=== PATIENT | male | born 1985 | race Caucasian/White ===

== ENCOUNTER 2024-10-07 13:10 | Outpatient (RCR) | payer OTHER, SELFPAY | END 2024-11-15 07:34 | disposition home or self-care (01) | LOC: PT 13:10 | PROVIDERS: PCP Family Medicine; Visit Provider Family Medicine | DX: M54.50 Low back pain, unspecified (principal) | CPT/HCPCS: 20561; 97110; 97113; 97140; 97161 ==

== ENCOUNTER 2025-01-05 09:09 | Outpatient (OUT) | payer OTHER, SELFPAY ==
--- NOTE | 2025-01-05 09:14 | MR_ITS ---
[address] [address] Patient Name: JOSELIN KAISER MRN: [id number] date: 1985 Sex: M Assigned Patient Location: MRI Current Patient Location: MRI Accession/Order Number: [id number] Exam Date: 01/05/2025 10:11 Report Date: 01/05/2025 15:49 At the request of: HUMBERTO KNOWLES Procedure: MR lumbar spine wo con EXAM: MR lumbar spine wo con HISTORY: Chronic lumbar back pain with bilateral leg pain. COMPARISON: None. TECHNIQUE: Multiplanar and multisequence imaging of the lumbar spine was performed without contrast FINDINGS: There is straightening of the lumbar lordosis. No acute fracture is evident in the lumbar spine. There is moderate degenerative disc disease at L5-S1 with disc height loss and disc desiccation along with Modic type I edematous degenerative endplate change. There is mild disc height loss and disc desiccation at L2-L3 and L3-L4 as well as disc desiccation at L4-L5. No acute abnormality is identified involving visualized intrapelvic or intra-abdominal structures. The visualized aorta is normal in diameter. No discrete renal lesion is evident. The upper sacrum is intact. There are no pars defects. The conus terminates at the superior aspect of L1. L5-S1: There is moderate degenerative disc disease with a broad-based disc protrusion measuring 5 mm in AP dimension. Mild facet arthropathy is present. There is mild to moderate bilateral foraminal narrowing and effacement of the thecal sac without central stenosis. L4-L5: A broad-based disc protrusion is asymmetric to the right measuring 5 mm in AP dimension with an annular tear on the right. There is moderate to severe lateral recess narrowing on the right and moderate lateral recess narrowing on the left. There is endplate spurring and mild to moderate facet arthropathy resulting in moderate right and mild to moderate left foraminal narrowing. L3-L4: Bilateral foraminal and far lateral disc protrusions are present measuring 6 mm on the left and 5 mm on the right. There is moderate left greater than right foraminal narrowing and moderate to marked lateral recess narrowing bilaterally. The thecal sac measures 10 mm in AP dimension. L2-L3: There is a 4 mm broad-based disc protrusion and mild facet arthropathy. There is no central or foraminal stenosis. L1-L2: There is no focal disc herniation. There is no central or foraminal stenosis. MR/MR lumbar spine wo con IMPRESSION: 1. Bilateral foraminal and far lateral disc protrusions at L3-L4 result in moderate left greater than right foraminal narrowing. 2. There is a broad-based disc protrusion at L4-L5 asymmetric to the right resulting in moderate to severe lateral recess narrowing on the right and moderate lateral recess narrowing on the left along with moderate right and mild to moderate left foraminal narrowing at L4-L5. 3. There is also broad-based disc protrusion at L5-S1 resulting in mild to moderate bilateral foraminal narrowing without central stenosis. Electronically authenticated by: CANDICE MAJOR Date: 01/05/2025 15:49
--- NOTE | 2025-01-05 09:49 | XR_ITS ---
The [address] [address] Patient Name: JOSELIN KAISER MRN: [id number] date: 1985 Sex: M Assigned Patient Location: MRI Current Patient Location: MRI Accession/Order Number: [id number] Exam Date: 01/05/2025 09:50 Report Date: 01/05/2025 11:24 At the request of: HUMBERTO KNOWLES Procedure: XR foreign body eye IVAN EXAM: XR foreign body eye IVAN HISTORY: Foreign Body Eye COMPARISON: None. TECHNIQUE: 2 views of the orbits. FINDINGS: No radiopaque foreign body in the region of the orbits is identified. The paranasal sinuses appear clear. No aneurysm clip is seen. XR/XR foreign body eye IVAN IMPRESSION: No radiopaque foreign body in the region of the orbits. Electronically authenticated by: MYRNA MATHIS Date: 01/05/2025 11:24
== END 2025-01-05 09:10 | disposition home or self-care (01) ==
LOC: MRI 09:10
PROVIDERS: PCP Family Medicine; Visit Provider Family Medicine
DX: M54.50 Low back pain, unspecified (principal); M51.26 Other intervertebral disc displacement, lumbar region
CPT/HCPCS: 70030; 72148

== ENCOUNTER 2025-03-18 07:54 | Outpatient (OUT) | payer OTHER, SELFPAY ==
--- NOTE | 2025-03-18 07:58 | MR_ITS ---
The [address] [address] Patient Name: JOSELIN KAISER MRN: [id number] date: 1985 Sex: M Assigned Patient Location: MRI Current Patient Location: MRI Accession/Order Number: [id number] Exam Date: 03/18/2025 23:37 Report Date: 03/18/2025 23:43 At the request of: DANIELA IRAHETA MD Procedure: MR head/brain wo/w con MRI BRAIN WITHOUT AND WITH INTRAVENOUS CONTRAST CLINICAL DATA: Left-sided tinnitus COMPARISON: None FINDINGS: No restricted diffusion. Ventricles and sulci normal size and configuration for the patient's age. No shift midline structure. Basal cisterns are patent. Brain parenchyma unremarkable in signal intensity. Intracranial arterial vascular flow voids are preserved. Dedicated imaging of the IACs demonstrate maintenance of the intrinsic T2 signal within the inner ear structures. Unremarkable course and caliber of the cisternal segments of the 7th and 8th cranial nerves. Incidental right-sided AICA extending to the right IAC. No abnormal retrocochlear. No abnormal enhancement elsewhere within the brain. Mild ethmoid sinus and maxillary sinus mucoperiosteal thickening. Mastoids are clear MR/MR head/brain wo/w con IMPRESSION: Essentially unremarkable MRI of the brain and IACs. No retrocochlear enhancement identified. Impression dictated by: Jozef Chow M.D. 03/18/2025 11:43 PM Dictation Location: [place] [address] Electronically authenticated by: [id number] Y Date: 03/18/2025 23:43
== END 2025-03-18 07:55 | disposition home or self-care (01) ==
LOC: MRI 07:54
PROVIDERS: PCP Family Medicine; Visit Provider Otolaryngology
DX: H93.12 Tinnitus, left ear (principal); H90.42 Sensorineural hearing loss, unilateral, left ear, with unrestricted hearing on the contralateral side
CPT/HCPCS: 70553; A9575

== ENCOUNTER 2025-11-04 15:54 | Outpatient (OUT) | payer OTHER, SELFPAY ==
--- OUTSIDE RECORDS SUMMARY | 2025-10-28 06:28 | XMS_ITS | Continuity of Care Document ---
Author Organization [facility] Address [address] [place] [address] Phone Care Team Providers Care Pocket Maker Name Role Phone Trisha Sweet MD Primary Care Provider Stanford Villalpando DO Attending Provider [phone] Trisha Sweet MD Attending Provider Care Teams Patient Care Team Team Status: Active Member Role/Relationship Status Dates Trisha Sweet MD Primary Care Provider Active Visit Care Team Team Status: Inactive Member Role/Relationship Status Dates Trisha Sweet MD Primary Care Provider Active Start: August 19, 2025 End: August 19, 2025Stanford Villalpando DOAttnathan ProviderActiveStart: August 19, 2025 End: August 19, 2025 Visit Care Team Team Status: Inactive Member Role/Relationship Status Dates Trisha Sweet MD Primary Care Provider Active Start: September 23, 2025 End: September 23, 2025Maura Torrez ProviderActiveStart: September 23, 2025 End: September 23, 2025 Patient Care Team Team Status: Inactive Member Role/Relationship Status Dates Trisha Sweet MD Primary Care Provider Active Start: October 28, 2025 End: October 28, 2025Maura Torrez ProviderActiveStart: October 28, 2025 End: October 28, 2025 Chief Complaint and Reason for Visit Chief Complaint Admit Date b/l hip pain August 19, 2025 10 :49am Wellness September 23, 2025 8 :55am Foot Pain/Wants Referral October 28, 2025 10:40am Reason for Visit Admit Date Piriformis syndrome of both sides Octobe 2024 10:49am Myalgia, pelvic region and thigh August 19, 2025 10:49am Adult ADHD September 23, 2025 8 :55am EDGAR (obstructive sleep apnea) September 232024 8:55am Wellness examination September 23, 2025 8:55am Piriformis syndrome of both sides Novemb er 2024 8:55am Right foot pain October 28, 2025 10:40am Reason for Referral Type Reason(s) Provider Provider Contact Information Ela last Address Start Date Right foot pain M79.671 - Pain in right footM79.671 - [facility] Allergies, Adverse Reactions, Alerts Allergen Type Severity Reaction Last Updated Verified Status coedine Allergy Moderate Itching February 10, 2025 8:36am No Active Social History Smoking Status Unknown if ever smoked Observation Status Observation Response Date of Response Legal Sex Male (finding) Sex Assigned At [facility] 1985 Family History Relationship Condition Age at Onset Recorded Date/T mimi father High blood cholesterol Unknown Problems Active Problems Problem Diagnosis/Recorded Date Onset Date Stat EDGAR (obstructive sleep apnea) September 23, 2025 9:30a m Unknown Active Adult ADHD January 07, 2024 11:34am Unknown Active Sinusitis, acute maxillary March 08, 2024 12:37pm Un known Active Wellness examination September 23, 2025 9:30am Unknown Active Lumbar pain September 22, 2024 4:54pm Unknown Ac tive Right foot pain October 28, 2025 11:04am Unknown Active Left-sided sensorineural hearing loss September 15 1:53pm Unknown Active Piriformis syndrome of both sides February 10, 2025 11: 46am Unknown Active Medications Medication Status Dose Units Route Directions Qty Days Refills S tart Date Stop Date End Date Reason(s) Instructions Adherence Dextroamphetamine-Amphetamin e (Adderall Xr) 15 mg capsule,extended release 24hr Discontinued 15 MG PO Every morning 30 30 0 February 06, 2024 March 06, 2024 8:10amAttention deficit disorder of adult with hyperactivity Attention-deficit hyperactivity disorder, unspecified typeDextroamphetamine- Amphetamine (Adderall Xr) 15 mg capsule,extended release 66ogZwuudlgjnwat54DNJW Every igpxvjy34197Jko 2023June 2023 1:40pmAttention deficit disorder of adult with hyperactivity Attention-deficit hyperactivity disorder, unspecified typeDextroamphetamine- Amphetamine (Adderall Xr) 15 mg capsule,extended release 99ogFuetgiaprjpd52EVUD Every ihiyahs28845Iylo 2023July 2023 7:46amAttention deficit disorder of adult with hyperactivity Attention-deficit hyperactivity disorder, unspecified typeDextroamphetamine- Amphetamine (Adderall Xr) 15 mg capsule,extended release 01ekEycrsnhmpvsa09LVMP Every yvogdxa85724Edar ugust 2023 9:06amAttention deficit disorder of adult with hyperactivity Attention-deficit hyperactivity disorder, unspecified typeDextroamphetamine- Amphetamine (Adderall Xr) 15 mg capsule,extended release 14cgJoxfmcxcoqzo91FGVX Every ygyfrzc66336Ogkuys 2023September 2023 12:28pmAttention deficit disorder of adult with hyperactivity Attention-deficit hyperactivity disorder, unspecified typeDextroamphetamine- Amphetamine (Adderall Xr) 15 mg capsule,extended release 25btWnzhwjbtaiqo64MAEB Every ltjaxyu01031Bpgnwlmqe 2023October 2023 2:33pmAttention deficit disorder of adult with hyperactivity Attention-deficit hyperactivity disorder, unspecified typeDextroamphetamine- Amphetamine (Adderall Xr) 15 mg capsule,extended release 17jeLvpytimvuxzj37CMKW Every tapmzjf17967Qkiesch 2023November 2023 11:25amAttention deficit disorder of adult with hyperactivity Attention-deficit hyperactivity disorder, unspecified typeDextroamphetamine- Amphetamine (Adderall Xr) 15 mg capsule,extended release 29bkKhavswmotbec31HXCO Every dshopxt60073Enysbppi ecember 2023 1:13pmAttention deficit disorder of adult with hyperactivity Attention-deficit hyperactivity disorder, unspecified typeDextroamphetamine- Amphetamine (Adderall Xr) 15 mg capsule,extended release 83vnUktsiwollxse39UKUF Every zrqzsbr93959Livwdaap 2023January 2024 8:38amAttention deficit disorder of adult with hyperactivity Attention-deficit hyperactivity disorder, unspecified typeDextroamphetamine- Amphetamine (Adderall Xr) 15 mg capsule,extended release 58ayMokjnricrbws53NOUT Every rpwoedy02084Xcbmbru 2024February 2024 9:21amAttention deficit disorder of adult with hyperactivity Attention-deficit hyperactivity disorder, unspecified typeDextroamphetamine- Amphetamine (Adderall Xr) 15 mg capsule,extended release 71xrRalxfcagkyqu17XJMP Every udaksuk81705Ttgfolju 2024March 2024 7:13amAttention deficit disorder of adult with hyperactivity Attention-deficit hyperactivity disorder, unspecified typeDextroamphetamine- Amphetamine (Adderall Xr) 15 mg capsule,extended release 10pfUdeledklefet82JJTF Every nljwvzh93579Ccnmq pril 2024 8:32amAttention deficit disorder of adult with hyperactivity Attention-deficit hyperactivity disorder, unspecified typeDextroamphetamine- Amphetamine (Adderall Xr) 15 mg capsule,extended release 25pdQuxfcimygmvb68WYKE Every kgvchrj30562Mnmfr 2024May 2024 12:19pmAttention deficit disorder of adult with hyperactivity Attention-deficit hyperactivity disorder, unspecified typeDextroamphetamine- Amphetamine (Adderall Xr) 15 mg capsule,extended release 96bmRuaxnotazrbz82XDYT Every ecydodc80660Qew 2024June 2024 11:45amAttention deficit disorder of adult with hyperactivity Attention-deficit hyperactivity disorder, unspecified typeDextroamphetamine- Amphetamine (Adderall Xr) 15 mg capsule,extended release 32frCyfwpjpguykd14IFAJ Every gezetkg72578Szlg 2024July 2024 8:49amAttention deficit disorder of adult with hyperactivity Attention-deficit hyperactivity disorder, unspecified typeDextroamphetamine- Amphetamine (Adderall Xr) 15 mg capsule,extended release 47mtWgoxvucolake44UARL Every vqbeajx41541Rabl ugust 2024 10:11amAttention deficit disorder of adult with hyperactivity Attention-deficit hyperactivity disorder, unspecified typeDextroamphetamine- Amphetamine (Adderall Xr) 15 mg capsule,extended release 23syOunqbajmmduv63JCVQ Every gdmjvyp36027Dhifhx ugu2024 10:12amAttention deficit disorder of adult with hyperactivity Attention-deficit hyperactivity disorder, unspecified typeDextroamphetamine- Amphetamine (Adderall Xr) 15 mg capsule,extended release 32duHftufbslwykn20NHFD Every qrcjoqm12230Lrssgr 2024September 2024 7:20amAttention deficit disorder of adult with hyperactivity Attention-deficit hyperactivity disorder, unspecified typeDextroamphetamine- Amphetamine (Adderall Xr) 15 mg capsule,extended release 67pdBzrhxqwsvjvt21LFVA Every czrhrzc30236Tpizewklw 2024September 2024 7:21amAttention deficit disorder of adult with hyperactivity Attention-deficit hyperactivity disorder, unspecified typeDextroamphetamine- Amphetamine (Adderall Xr) 15 mg capsule,extended release 76cxZgfmnyudelra46NGWX Every dvgxatj27982Zarokmzic 2024October 2024 7:24amAttention deficit disorder of adult with hyperactivity Attention-deficit hyperactivity disorder, unspecified typeDextroamphetamine- Amphetamine (Adderall Xr) 15 mg capsule,extended release 48qaWesmedxvkolg75ZHSZ Every tikhkzh73402Eamfcol 2024Nov2024 8:30amAttention deficit disorder of adult with hyperactivity Attention-deficit hyperactivity disorder, unspecified typeDextroamphetamine- Amphetamine (Adderall Xr) 15 mg capsule,extended release 88joVkbfxf70CCKUFmajz phzcicj34871Ctgvhcmy 21st, 2025Attention deficit disorder of adult with hyperactivity Attention-deficit hyperactivity disorder, unspecified typeComplies with drug therapyDextroamphetamine-Amphetamine (Adderall Xr) 10 mg capsule,extended release 40mkQctdprxysglv3JPXGHAbknk0Owsicnaq 2023 12:00amFebruary 2023 11:34amFreeTextSi capsule in the morning Orally Once a day; Note: Source Status: Refill; Refills: 0; Qty: 30 Capsule; Provider: Kee Darnell Dextroamphetamine-Amphetamine (Adderall Xr) 10 mg capsule,extended release 24hr Zgnjsmfxdyfr0OWSZCGqrur51935Kaznqktf 2023March 2023 11:53amAttention deficit disorder of adult with hyperactivity Attention-deficit hyperactivity disorder, unspecified typeFreeTextSi capsule in the morning Orally Once a day; Note: Source Status: Refill; Refills: 0; Qty: 30 Capsule; Provider: Kee Alvarezthromycin 250 mg lngcbqWxwgxxtmkxpp9JJ .KRLTDTT84Yrpil 2023 11:00pmOctober 2023 1:27pmFor 250 mg dose pack: take 500 mg today (day 1), then 250 mg for 4 days (days 2-5) PO Dextroamphetamine-Amphetamine (Adderall Xr) 15 mg capsule,extended release 24hr Exgwcxfrvlck65NGZCTrslj madbyjd84070Epxvz 2023May 2023 8:54am Attention deficit disorder of adult with hyperactivity Attention-deficit hyperactivity disorder, unspecified typeAmoxicillin-Pot Clavulanate 875-125 mg breuezOrxcwifdyhbt7UJNRHKisgi mjicc402Uqwkuaw 27th, 2024 11:00pmMarch 2024 8:38am Vital Signs Vital Reading Result Reference Range Collection Date/Time Height 74 [in_i] August 19, 2025 8:33znIyvjlm06.53 kgOct2024 8:37amBody Temperature 97.3 [degF]97.6-99.0Oct2024 8:37amHeart Rate75 /yjy93-993UgnkfmfAugust 19, 2025 8:37amOxygen saturation by Pulse lgaotueu39 %95-100August 19, 2025 8:37am BP Yiuhuqwo244 mm[Hg]100-140August 19, 2025 8:37amBP Kwqgsaolb88 mm[Hg]60-100 August 19, 2025 8:37amBMI (Body Mass Index)26.2 kg/n1HjvbikcAugust 19, 2025 8:37am Zzbecs73 [in_i]September 23, 2025 8:85ikFgctdo44.07 kgNov2024 8:57am Heart Rate90 /mkx43-728YrixsykbSeptember 23, 2025 8:57amBP Utgiwlww911 mm[Hg]100-140 September 23, 2025 8:57amBP Ltnornxqi61 mm[Hg]60-100September 23, 2025 8:57amBMI (Body Mass Index)26.0 kg/z8VlydhbaxSeptember 23, 2025 8:32wkDpxyzb69 [in_i]October 28, 2025 10:57rbFiusnz71.33 kgDecember 2024 10:41amHeart Ornl484 /min 60-100Decemb2024 10:41amBP Ugqzcqxv444 mm[Hg]100-140December 2024 10:41amBP Nntmbsyhn34 mm[Hg]60-100December 2024 10:41amBMI (Body Mass Index)28.0 kg/e5Bfnllbzh2024 10:41am Advance Directives Advance Directive Response Recorded Date/ Time Advance Directives No March 06 7:34am Insurance Providers Guarantor Ozzy Glaser Miguel Address [address] [place] [id number] Info.Home Phone: Payer Group Member ID Coverage Type Subscriber Relationship to Subscriber Effective Date Expiration Date [facility] [id number] N Smith Id: [id number] [address] [place] [id number] Home Phone: Email: [email or web address] Encounters Encounter Location(s) Arrival/Admit Date Discharge/Departure Date Discharge/Departure Disposition Provider(s) Departed Physician/ Provider Office Visit -[facility] [place] August 19, 2025 10:49am August 19, 2025 11:34am Discharged to home care or self care (routine discharge) Stanford Villalpando DO Departed Physician/ Provider Office Visit -[facility] September 23, 2025 8:55am September 23, 2025 9:33am Discharged to home care or self care (routine discharge) Trisha Sweet MD Departed Physician/ Provider Office Visit -[facility] October 28, 2025 10:40am October 28, 2025 11:27am Discharged to home care or self care (routine discharge) Trisha Sweet MD Recent Diagnosis Onset Date Admit Date Piriformis syndrome of both sides Unknown August 19, 2025 10:49am Myalgia, pelvic region and thigh Unknown August 19, 2025 10:49am Adult ADHD Unknown September 23 8:55am EDGAR (obstructive sleep apnea) Unknown No vember 2024 8:55am Wellness examination Unknown September 8:55am Piriformis syndrome of both sides Unknown September 23, 2025 8:55am Right foot pain Unknown October 28, 2 025 10:40am Assessments Diagnosis Onset Date Resolution Status Admit Date Piriformis syndrome of both sides chronicOctober 2024 10:49amMyalgia, pelvic region and thighnoneactive August 19, 2025 10:49amAdult ADHDacuteNov2024 8:55amOSA (obstructive sleep apnea)acuteSeptember 23, 2025 8:55amWellness examinationacute September 23, 2025 8:55amPiriformis syndrome of both sideschronicSeptember 23, 2025 8:55amRight foot painacuteDecember 2024 10:40am Plan of Treatment Author Stanford Villalpando [facility] 20[facility] 11:33amPatient has a reoccurrence of piriformis syndrome bilaterally. He received injections back in February that provided 5 to 6 months worth of benefit. Pain is not as severe as it was but he is noticing some sciatica symptoms again and would like treatment so it does not get severe again. We discussed repeat steroid injections given how long the previous ones benefited him. He agreed and they were performed under ultrasound guidance in the office today. Patient is not to do any strenuous exercising for the next 2 to 3 days and then resume rehab exercising for the piriformis to try and keep these from happening again. He will follow-up in the future as needed. Author Trisha Sweet [facility]Nov[facility] 2024 9:31amPt states the medication is working well, getting him through work day, multi tasking, etc. He understands it is a controlled substance and keeps medication safe. CS contract signed earlier this year. He is not interested in changing it to a non stimulant option at this time. OARRS reviewed. Personalized health advice was given to the beneficiary to health education of preventative counseling services or programs aimed at reducing identified risk factors and improving self-management or community-based lifestyle interventions to reduce health risks and promote self-management and wellness, including physical activity and nutrition. continue w use of CPAP Continue followup w Dr. Villalpando. Future Tests Future scheduled test information is unavailable Pending Tests Test Name Ordered Date Scheduled Date XR foot RT min 3V* October 28, 2025 11:04am Future Visits Future appointment information is unavailable Future Procedures Future procedure information is unavailable Future Medications Future medication information is unavailable Patient Instructions Patient instructions are unavailable Hospital Discharge Instructions Ambulatory Orders* Referral to Podiatry Time Frame: 10/28/25, Location: None Selected
--- NOTE | 2025-11-04 | XR_ITS ---
The [place] [id number] Patient Name: JOSELIN KAISER MRN: [id number] date: 1985 Sex: M Assigned Patient Location: [facility] Current Patient Location: [facility] Accession/Order Number: [id number] Exam Date: 11/04/2025 16:05 Report Date: 11/04/2025 16:23 At the request of: HUMBERTO KNOWLES MD Procedure: XR foot RT min 3V 3 views right foot HISTORY: Right foot pain for couple weeks Adequate bony alignment without acute displaced fracture or significant degeneration or soft tissue abnormality. XR/XR foot RT min 3V IMPRESSION: Unremarkable exam. Impression dictated by: Alberto Rutherford M.D. 11/04/2025 4:23 PM Dictation Location: [place] [address] Electronically authenticated by: [id number] Y Date: 11/04/2025 16:23
--- OUTSIDE RECORDS SUMMARY | 2025-11-04 15:58 | XMS_ITS | Encounter Summary ---
Author Organization [facility] Address [address] [place] [address] Care Team Providers Care Lobby Porter Name Role Phone Trisha Sweet MD Primary Care Provider [phone] Encounter Details DateTypeDepartmentCare Team (Latest Contact Info)Rifwcpozgrb59/12/2025bstract [facility] [address] [facility] [address] [place] [phone] Darrian Cole DPM [address] [address] Social History Tobacco UseTypesPacks/DayYears UsedDateSmoking Tobacco: NeverSmokeless Tobacco: NeverAlcohol UseStandard Drinks/WeekCommentsNever0 (1 standard drink = 0.6 oz pure alcohol)caffeine intake: 2-3 cups per daySex and Gender InformationValue Date RecordedSex Assigned at BirthNot on fileLegal RsuIpvm6601/31/2023 7:20 PM EDT Gender IdentityNot on fileSexual OrientationNot on filedocumented as of this encounter Plan of Treatment DateTypeDepartmentCare Team (Latest Contact Info)Kbammqcrudb95/22/2025 9:00 AM ESTOffice Visit [facility] [address] [place] [phone] Darrian Cole DPM [address] [address] documented as of this encounter Visit Diagnoses Not on filedocumented in this encounter Care Teams Team MemberRelationshipSpecialtyStart DateEnd Date Trisha Sweet MD [address] [place] [phone] PCP - GeneralFamily Medicine03/10/25documented as of this encounter
--- OUTSIDE RECORDS SUMMARY | 2025-11-04 15:58 | XMS_ITS | Clinical Summary ---
Author Organization [facility] Address [address] [place] [address] Care Team Providers Care Financial Accounting Manager Name Role Phone Trisha Sweet MD Primary Care Provider [phone] Allergies Active AllergyReactionsCriticalityNoted IdbwWgstqrewZzerqmn38/05/2024 Other Reaction(s): severe itching Medications MedicationSigDispense QuantityRefillsLast FilledStart DateEnd DateStatus amphetamine-dextroamphetamine XR (Adderall XR) 10 MG 24 hr capsule Take 10 mg by mouth in the morning.01/07/2024ctive Active Problems ProblemNoted DateDiagnosed DateAbdominal pain03/10/2025dult ADHD03/10/2025 Encounter for examination for recruitment to [facility]03/10/2025Encounter for tbpnijkvk75/22/2025Left-sided sensorineural hearing loss03/10/2025Piriformis syndrome of both sides03/10/2025Screening examination for pulmonary tuberculosis 03/10/2025Tinea ernfue9503/10/2025hronic maxillary wyvpqzvzn40/05/2024hronic famhhgfiyymk43/05/2024egenerative disc disease, lmrgmt4201/22/2024eviated nasal koeelz0801/22/2024Lumbago with sciatica, left side01/22/2024Sciatica, left side 01/22/2024Hypertrophy of nasal rbzrowhymh96/05/2024Nasal ggopvrdkqfj86/05/2024 Obstructive sleep apnea himfnksg70/05/2024Other chronic pain01/22/2024Sinusitis 01/22/2024 Encounters DateTypeDepartmentCare PbzrUabchfpnfdz29/12/2025bstract [facility] [address] [facility] [address] [place] [address] Darrian Cole DPM 09/25/2025 9:30 AM ESTClinical Support [facility] [address] [place] [address] Charlotte Newby CCC-Ina Sensorineural hearing loss, unilateral, left ear, with unrestricted hearing on the contralateral side (Primary Dx); Tinnitus, mzambgbla08/07/2025amboo flowsheet [facility] [address] [place] [address] Charlotte Newby CCC-A 09/25/2025Travelfrom Last 3 Months Immunizations ImmunizationAdministration DatesNext GrwECD4403/22/1994,06/10/1985,03/11/1984, 02/19/1984Influenza, Khgjqteujim48/19/2023Influenza, injectable, quadrivalent 10/13/2019MMR07/06/1999,03/13/1985OPV03/22/1994,06/10/1985,02/19/1984 Family History Medical HistoryRelationNameCommentsDiabetesFatherHeart diseaseFatherAsthmaOther Family historyCancerOtherFamily historyCoronary artery diseaseOtherFamily historyHypertensionOtherFamily historyRelationNameStatusCommentsFatherAlive MotherAliveOtherFamily history Social History Tobacco UseTypesPacks/DayYears UsedDateSmoking Tobacco: NeverSmokeless Tobacco: NeverAlcohol UseStandard Drinks/WeekCommentsNever0 (1 standard drink = 0.6 oz pure alcohol)caffeine intake: 2-3 cups per daySex and Gender InformationValue Date RecordedSex Assigned at BirthNot on fileLegal NpaAnsl4201/31/2023 7:20 PM EDT Gender IdentityNot on fileSexual OrientationNot on file Last Filed Vital Signs Vital SignReadingTime TakenCommentsBlood Aaqxnawk544/8403/30/2025 9:15 AM EDT Ggifz267003/30/2025 9:15 AM EDTTemperature--Respiratory Rate--Oxygen Saturation-- Inhaled Oxygen Concentration--Eyprvg603 kg (238 lb)03/30/2025 9:15 AM EDTHeight 188 cm (6' 2 )03/30/2025 9:15 AM EDTBody Mass Index30.56003/30/2025 9:15 AM EDT Plan of Treatment DateTypeDepartmentCare Team (Latest Contact Info)Ylahhtxbzet74/22/2025 9:00 AM ESTOffice Visit [facility] [address] [place] [id number] Darrian Cole DPM [address] [address] Procedures Procedure NamePriorityDate/TimeAssociated DiagnosisCommentsAUDITORY FUNCTION MMTROCkuizhm09/07/2025 10:11 AM EST from Last 3 Months Results * Auditory function tests (09/25/2025 10:11 AM EST) Narrative Charlotte Newby CCC-A - 09/25/2025 10:11 AM EST Right Ear: Normal hearing Left Ear: ?? Moderate sensorineural hearing loss above 2K Hz Authorizing ProviderResult TypeResult StatusDenitesh Newby [facility] SERVICES ORDERABLESFinal Result from Last 3 Months Insurance Care Teams Team MemberRelationshipSpecialtyStart DateEnd Date Trisha Sweet MD [address] [place] [address] [facility] Medicine03/10/25
== END 2025-11-04 15:55 | disposition home or self-care (01) ==
LOC: RAD 15:55
PROVIDERS: PCP Family Medicine; Visit Provider Family Medicine
DX: M79.671 Pain in right foot (principal)
CPT/HCPCS: 73630